=== PATIENT | male | born 1945 | race Caucasian/White ===

== ENCOUNTER 2018-06-14 10:32 | Inpatient (IN) | payer OTHER, MEDICARE ==
[~2018-06-14] VITALS: Ht 172.7 cm; Wt 71.9 kg
[2018-06-14] MEDS ORDERED: ALLOPURINOL PO (11:31)
[2018-06-14] MEDS ORDERED: TACR0.5C4 PO (11:31)
[2018-06-14] MEDS ORDERED: LEFL10TA14 PO (11:31)
[2018-06-14] MEDS ORDERED: APIX5TAB PO ×2 (11:31→11:35)
[2018-06-14] MEDS ORDERED: ATORVASTATIN PO (11:31)
[2018-06-14] MEDS ORDERED: DAPS25TA PO (11:31)
[2018-06-14] MEDS ORDERED: SYNTHROID PO (11:31)
[2018-06-14] MEDS ORDERED: ASPI-515 PO (11:31)
[2018-06-14] MEDS ORDERED: BYSTOLIC PO (11:31)
[2018-06-14] MEDS ORDERED: SODIUM CHLORIDE 0.9% 1,000 ML IV ONE (11:32)
[2018-06-14] MEDS ORDERED: CINA30TA2 PO (11:35)
[2018-06-14] MEDS ORDERED: [UNRECOGNIZED DRUG - OTHER] PO (11:35)
[2018-06-14] MEDS ORDERED: MAGN400T26 PO (11:35)
[2018-06-14 11:55] LABS: BASOPHILS # (AUTO) 0.03 x10^3/uL (0-0.1); BASOPHILS % (AUTO) 0 % (0-1); EOSINOPHILS # (AUTO) 0.16 x10^3/uL (0-0.4); EOSINOPHILS % (AUTO) 2 % (1-7); LYMPHOCYTES # (AUTO) 1.21 x10^3/uL (1-3.4); LYMPHOCYTES % (AUTO) 14 % (22-44); MD NO; MEAN CORPUSCULAR HEMOGLOBIN 32.7 pg (27.5-34.5); MEAN CORPUSCULAR HGB CONC 34.1 g/dL (33.2-36.2); MEAN CORPUSCULAR VOLUME 95.8 fL (81-97); MEAN PLATELET VOLUME 9.6 fL (7.4-10.4); MONOCYTES # (AUTO) 0.92 x10^3/uL (0.2-0.8); MONOCYTES % (AUTO) 11 % (2-9); NEUTROPHILS # (AUTO) 6.14 x10^3/uL (1.8-6.8); NEUTROPHILS % (AUTO) 73 % (42-75); PLATELET COUNT 131 x10^3/uL (130-400); RED BLOOD COUNT 4.21 x10^6/uL (4.38-5.82); RED CELL DISTRIBUTION WIDTH 15.6 % (9.4-14.8)
[2018-06-14 12:00] LABS: ALBUMIN 3.6 g/dL (3.4-5.0); ANION GAP 7 mmol/L (5-15); CALCIUM 9.3 mg/dL (8.5-10.1); CHLORIDE 112 mmol/L (98-107); CREATININE 1.49 mg/dL (0.7-1.3)
[2018-06-14] MEDS ORDERED: SODIUM CHLORIDE FLUSH 10ML SYR IVF ONE (12:00)
[2018-06-14 12:03] LABS: INTERNATIONAL NORMALIZED RATIO 1.05 (0.93-1.1); PROTHROMBIN TIME 10.8 Seconds (9.6-11.5)
[2018-06-14] MEDS ORDERED: FENTANYL PF 250 MCG/5ML ONE (12:58)
[2018-06-14] MEDS ORDERED: PAPAVERINE 30 MG/ML, 2ML ONE (12:59)
[2018-06-14] MEDS ORDERED: HEPARIN 1,000 UNITS/ML, 10ML ONE (12:59)
[2018-06-14] MEDS ORDERED: PROTAMINE SULFATE 10 MG/ML, 5ML ONE (12:59)
[2018-06-14] MEDS ORDERED: THROMBIN 20,000 UNIT VIAL TP ONE (12:59)
[2018-06-14] MEDS ORDERED: LIDOCAINE/PF 0.5% ,50ML ONE (12:59)
[2018-06-14] MEDS ORDERED: BUPIVACAINE/PF 0.5% ONE (12:59)
[2018-06-14] MEDS ORDERED: ANTI INHIBITOR COAGULANT COMP IVPush ONE ×2 (13:30)
[2018-06-14] MEDS ORDERED: SUCCINYLCHOLINE 20 MG/ML, 10ML ONE (13:37)
[2018-06-14] MEDS ORDERED: PHENYLEPHRINE 10 MG/ML ONE (13:37)
[2018-06-14] MEDS ORDERED: EPHEDRINE 50 MG/ML, 1ML ONE (13:37)
[2018-06-14] MEDS ORDERED: ONDANSETRON 2MG/ML, 2ML IV PRN ×2 (14:30→17:00)
[2018-06-14] MEDS ORDERED: OXYcodone 5 MG/5 ML ORAL.SOL UDC PO PRN (14:30)
[2018-06-14] MEDS ORDERED: FENTANYL PF 100 MCG/2ML IV PRN (14:30)
[2018-06-14] MEDS ORDERED: HYDROmorphone 1 MG/ML, 1ML IV PRN ×2 (14:30→17:00)
[2018-06-14] MEDS ORDERED: MIDAZOLAM 1 MG/ML, 2ML IV PRN (14:30)
[2018-06-14] MEDS ORDERED: hydrALAzine 20 MG/ML, 1ML IV PRN (14:30)
[2018-06-14] MEDS ORDERED: LABETALOL 5MG/ML, 20ML IV PRN (14:30)
[2018-06-14] MEDS ORDERED: ALBUTEROL/IPRATROPIUM 2.5MG/0.5MG, 3 ML NPPB PRN (14:30)
[2018-06-14] MEDS ORDERED: PROMETHAZINE 25 MG/ML, 1ML IV PRN (14:30)
[2018-06-14] MEDS ORDERED: VISIPAQUE 270 MG/ML, 50ML BOTTLE ONE (14:51)
[2018-06-14] MEDS ORDERED: DEXAMETHASONE 4 MG/ML, 1ML ONE (15:01)
[2018-06-14] MEDS ORDERED: PROPOFOL 10 MG/ML, 20ML ONE (15:01)
[2018-06-14] MEDS ORDERED: ONDANSETRON 2MG/ML, 2ML ONE (15:01)
[2018-06-14] MEDS ORDERED: CEFAZOLIN 1,000 MG ONE (15:01)
[2018-06-14] MEDS ORDERED: SODIUM CHLORIDE 0.9% 1,000 ML IV SCH (15:46)
[2018-06-14] MEDS ORDERED: morphine SULFATE 10 MG/ML, 1ML IVPush PRN (16:00)
[2018-06-14] MEDS ORDERED: LABETALOL 5MG/ML, 20ML IVPush PRN (16:00)
[2018-06-14] MEDS ORDERED: ONDANSETRON 2MG/ML, 2ML IVPush PRN (16:00)
[2018-06-14] MEDS ORDERED: HYDROcodone/APAP 5/325 TABLET PO PRN (17:00)
[2018-06-14] MEDS ORDERED: LORazepam 2 MG/ML, 1ML IV PRN (17:00)
[2018-06-14] MEDS ORDERED: OXYcodone/APAP 5/325MG TABLET PO PRN (17:00)
[2018-06-14] MEDS ORDERED: morphine SULFATE 10 MG/ML, 1ML IV PRN (17:00)
[2018-06-14] MEDS ORDERED: LORazepam 1MG TABLET PO PRN (17:00)
[2018-06-14] MEDS ORDERED: ONDANSETRON ODT 4 MG PO PRN (17:00)
[2018-06-14 17:42] VITALS: BP 155/63
[2018-06-14] MEDS: POTASSIUM CHLORIDE 20 MEQ in D5%-0.45% NACL 1,000 ML IV SCH (17:57)
[2018-06-14] MEDS: APIXABAN 5 MG TABLET PO SCH (20:45)
[2018-06-14] MEDS: TACROLIMUS 1.5 MG HOMEMEDPO SCH (20:46)
[2018-06-14] MEDS: CEFOTETAN PMX 1GM/50ML 50 ML IVPB SCH (22:34)
[2018-06-15] MEDS: POTASSIUM CHLORIDE 20 MEQ in D5%-0.45% NACL 1,000 ML IV SCH (02:38)
[2018-06-15 04:00] VITALS: BP 124/48
[2018-06-15 05:01] LABS: CHLORIDE 112 mmol/L (98-107)
[2018-06-15 05:08] LABS: ALANINE AMINOTRANSFERASE 19 U/L (12-78); ALBUMIN 2.8 g/dL (3.4-5.0); ALKALINE PHOSPHATASE 64 U/L (45-117); ANION GAP 8 mmol/L (5-15); BILIRUBIN,TOTAL 0.9 mg/dL (0.2-1.0); CALCIUM 8.1 mg/dL (8.5-10.1); CREATININE 1.51 mg/dL (0.7-1.3); TOTAL PROTEIN 6.1 g/dL (6.4-8.2)
[2018-06-15 05:10] LABS: BASOPHILS % (AUTO) 0 % (0-1); EOSINOPHILS % (AUTO) 0 % (1-7); LYMPHOCYTES # (AUTO) 0.94 x10^3/uL (1-3.4); LYMPHOCYTES % (AUTO) 8 % (22-44); MD NO; MEAN CORPUSCULAR HEMOGLOBIN 32.2 pg (27.5-34.5); MEAN CORPUSCULAR HGB CONC 33.3 g/dL (33.2-36.2); MEAN CORPUSCULAR VOLUME 96.7 fL (81-97); MEAN PLATELET VOLUME 9.8 fL (7.4-10.4); MONOCYTES # (AUTO) 0.97 x10^3/uL (0.2-0.8); MONOCYTES % (AUTO) 8 % (2-9); NEUTROPHILS # (AUTO) 10.53 x10^3/uL (1.8-6.8); NEUTROPHILS % (AUTO) 85 % (42-75); PLATELET COUNT 121 x10^3/uL (130-400); RED BLOOD COUNT 3.55 x10^6/uL (4.38-5.82); RED CELL DISTRIBUTION WIDTH 16.1 % (9.4-14.8)
[2018-06-15 05:25] LABS: PROTHROMBIN TIME 10.3 Seconds (9.6-11.5)
[2018-06-15] MEDS: TACROLIMUS 1.5 MG HOMEMEDPO SCH (07:56)
[2018-06-15] MEDS: APIXABAN 5 MG TABLET PO SCH (07:59)
[2018-06-15] MEDS ORDERED: [UNRECOGNIZED DRUG - OTHER] PO SCH (09:00)
[2018-06-15] MEDS ORDERED: CINACALCET 30 MG TABLET PO SCH (09:00)
[2018-06-15] MEDS ORDERED: DAPSONE 100 MG TABLET PO SCH (09:00)
[2018-06-15] MEDS ORDERED: MAGNESIUM OXIDE 400 MG TABLET PO SCH (09:00)
[2018-06-15] MEDS ORDERED: LEFLUNOMIDE HOMEMEDPO SCH (09:00)
[2018-06-15] MEDS ORDERED: ASPIRIN 81 MG TABLET EC PO SCH (09:00)
[2018-06-15] MEDS: CEFOTETAN PMX 1GM/50ML 50 ML IVPB SCH (10:26)
== END 2018-06-15 12:25 | disposition home or self-care (01) | DRG 253 ==
LOC: ED 12:37 → EDIP 12:49 → CCU 16:24 → DCLOUNGE 06-15 12:08
PROVIDERS: ADMIT Hospitalist; ATTEND Hospitalist
PROC: B41G1ZZ Fluoroscopy of Left Lower Extremity Arteries using Low Osmolar Contrast (ICD-10-PCS; 2018-06-14)
PROC: 0T9B80Z Drainage of Bladder with Drainage Device, Via Natural or Artificial Opening Endoscopic (ICD-10-PCS; 2018-06-14)
PROC: 04CL0ZZ Extirpation of Matter from Left Femoral Artery, Open Approach (ICD-10-PCS; principal; 2018-06-14 13:00)
DX: I74.3 Embolism and thrombosis of arteries of the lower extremities (principal); Z94.0 Kidney transplant status; E07.9 Disorder of thyroid, unspecified; I12.9 Hypertensive chronic kidney disease with stage 1 through stage 4 chronic kidney disease, or unspecified chronic kidney disease; I25.10 Atherosclerotic heart disease of native coronary artery without angina pectoris; I99.8 Other disorder of circulatory system; J44.9 Chronic obstructive pulmonary disease, unspecified; N18.3 Chronic kidney disease, stage 3 (moderate); Z79.01 Long term (current) use of anticoagulants; Z85.528 Personal history of other malignant neoplasm of kidney; Z86.718 Personal history of other venous thrombosis and embolism; Z87.891 Personal history of nicotine dependence; Z90.5 Acquired absence of kidney; I25.2 Old myocardial infarction; Z88.2 Allergy status to sulfonamides; Z95.1 Presence of aortocoronary bypass graft; Z95.5 Presence of coronary angioplasty implant and graft; Z90.49 Acquired absence of other specified parts of digestive tract; Z88.0 Allergy status to penicillin
CPT/HCPCS: 36415; 75710; 80048; 80053; 82040; 82550; 85025; 85610; 85730; 87081; 88304; 93005; 93306; 93926; 99291; J0690; J1100; J1644; J2001; J2405; J2704; J2720; J3010; J3480; J3490; J7198; Q9966; C1757; C1769; J0330; J2370; J2440; S0074